=== PATIENT | male | born 1955 | race Two or more races ===

== ENCOUNTER 2024-04-06 11:03 | Emergency (ER) | payer OTHER ==
[~2024-04-06] VITALS: Ht 167.6 cm; Wt 106.6 kg
[2024-04-06] MEDS ORDERED: ALLOPURINOL300 MG (12:15)
[2024-04-06] MEDS ORDERED: NIFEDIPINE ER60 M1 (12:15)
[2024-04-06] MEDS ORDERED: ATORVASTATIN CA80 MG (12:15)
[2024-04-06] MEDS ORDERED: LOSARTAN POTAS100 MG (12:15)
[2024-04-06] MEDS ORDERED: TAMSULOSIN HCL 0.4 MG CAP PO ONE ×2 (12:30→13:21)
[2024-04-06 13:51] LABS: PH,URINE 5.5 (5.0-8.0); URINE APPEARANCE Clear; URINE BILIRRUBIN Negative (NEGATIVE); URINE BLOOD Large; URINE COLOR Orange; URINE GLUCOSE Negative (NEGATIVE); URINE KETONE Negative (NEGATIVE); URINE LEUKOCYTE Trace; URINE NITRATE Negative; URINE PROTEIN 30 (NEGATIVE); URINE UROBILINOGEN 0.2 E.U./dl
[2024-04-06 13:54] LABS: URINE BACTERIA 226.4 uL (0.0-1933); URINE EPITHELIAL CELLS 12.8 uL (0.0-38.8); URINE WBC 102.1 uL (0.0-23.2)
[2024-04-06 15:36] LABS: URINE CAST 0.44 uL (0.0-1.40)
== END 2024-04-06 15:23 | disposition home or self-care (01) ==
LOC: ER 11:06
PROVIDERS: Emergency Medicine
DX: R33.8 Other retention of urine (principal); E78.00 Pure hypercholesterolemia, unspecified; I10 Essential (primary) hypertension; Z88.8 Allergy status to other drugs, medicaments and biological substances